=== PATIENT | male | born 1960 | race Caucasian/White ===

== ENCOUNTER 2017-03-28 13:59 | Emergency (ER) | payer BC ==
[~2017-03-28] VITALS: Ht 175.3 cm; Wt 93.0 kg
[2017-03-28] MEDS ORDERED: TOPROL XL25 MG PO (14:14)
[2017-03-28] MEDS ORDERED: CHILDREN'S ASPI81 MG PO (14:14)
[2017-03-28] MEDS ORDERED: PRINIVIL20 MG PO (14:14)
[2017-03-28] MEDS ORDERED: CIPRO500 MG PO (14:15)
[2017-03-28] MEDS ORDERED: KRILL OIL 5001 EAC1 PO (14:15)
[2017-03-28] MEDS ORDERED: CENTRUM SILVER1 EAC2 PO (14:15)
[2017-03-28 14:32] LABS: URINE BILIRUBIN NEGATIVE (Negative); URINE BLOOD 1+ (Negative); URINE CLARITY CLEAR; URINE COLOR YELLOW; URINE GLUCOSE-RANDOM* NEGATIVE (Negative); URINE KETONES TRACE (Negative); URINE NITRITE-REFLEX NEGATIVE (Negative); URINE PROTEIN (DIPSTICK) TRACE (Negative)
[2017-03-28 14:33] LABS: URINE LEUKOCYTES-REFLEX TRACE (Negative)
[2017-03-28 14:37] LABS: ABSOLUTE NEUTROPHILS 12.6 thou/uL (1.4-8.2); BASOPHILS 0.3 % (0.0-2.0); EOSINOPHILS 0.1 % (0.0-3.0); HEMATOCRIT 40.1 % (42.0-52.0); LYMPHOCYTES 3.4 % (24.0-44.0); MCH 31.4 pg (26.0-34.0); MCHC 34.8 g/dL (28.0-37.0); MCV 90.2 fL (80.0-100.0); MONOCYTES 5.8 % (1.0-8.0); PLATELET COUNT 115 thou/uL (150-400); POLYS 90.4 % (36.0-66.0); RBC 4.45 mil/uL (4.50-6.00); RDW 12.9 % (10.5-14.5); WBC 13.9 thou/uL (4.0-11.0)
[2017-03-28 14:45] LABS: CALCIUM 8.5 mg/dL (8.5-10.1); POTASSIUM 3.7 mmol/L (3.5-5.1)
[2017-03-28 14:45] LABS: BACTERIA-REFLEX None Seen /HPF (None Seen); CASTS None Seen /LPF (None Seen); CRYSTALS None Seen /LPF (None Seen); SQUAMOUS 0-3 Few /LPF (0-3); URINE RBC 0-2 Rare /HPF (0-2); URINE WBC-REFLEX 6-15 Few /HPF (0-5)
== END 2017-03-28 16:50 | disposition home or self-care (01) ==
LOC: ER 13:59
PROVIDERS: Emergency Medicine
DX: N12 Tubulo-interstitial nephritis, not specified as acute or chronic (principal); Z88.0 Allergy status to penicillin